=== PATIENT | female | born 1975 | race Caucasian/White ===

== ENCOUNTER 2019-06-05 16:23 | Emergency (ER) | payer OTHER, MEDICAID ==
--- NOTE | 2019-06-05 16:42 | ER Document Report ---
ED Medical Screen (RME) - General Chief Complaint: Near Syncope Stated Complaint: SYNCOPE Time Seen by Provider: 06/05/19 16:37 Primary Care Provider: RAVEN DAVID [Primary Care Provider] - Follow up as needed Mode of Arrival: Ambulatory Information source: Patient Notes: 43-year-old female with an ED after a syncopal episode this day she states she was in the kitchen when she woke up on the floor when the phone was ringing. Patient states she took a shower then went outside to smoke. She states she began to feel dizzy so she went back in the kitchen. She states that the next thing she remembers is waking up on the floor. She states she smokes a pack of cigarettes a week. She denies any alcohol or drugs to include marijuana. She states she occasionally is here visiting from [place] history includes cholesterol, essential tremors. She states she takes anxiety medicine for her tremors. Patient is alert oriented respirations regular and unlabored at this time. She did come in with her daughter. Her daughter is with her. She does have all her medications with her. She states she woke up around 3:00. I have greeted and performed a rapid initial assessment of this patient. A comprehensive ED assessment and evaluation of the patient, analysis of test results and completion of medical decision making process will be conducted by an additional ED providers. - Related Data Allergies/Adverse Reactions: No Known Allergies Allergy (Unverified 09/02/11 21:01) Past Medical History Pulmonary Medical History: Denies: Hx Tuberculosis Neurological Medical History: Denies: Hx Seizures Past Surgical History: Reports: Hx Tubal Ligation. Denies: Hx Hysterectomy, Hx Pacemaker - Immunizations Hx Diphtheria, Pertussis, Tetanus Vaccination: - unk Physical Exam - Vital signs Vitals: Temp Pulse Resp BP Pulse Ox 97.5 F 66 20 140/97 H 98 06/05/19 16:29 06/05/19 16:29 06/05/19 16:29 06/05/19 16:29 06/05/19 16:29 Course - Vital Signs Vital signs: Temp Pulse Resp BP Pulse Ox 97.5 F 66 20 140/97 H 98 06/05/19 16:29 06/05/19 16:29 06/05/19 16:29 06/05/19 16:29 06/05/19 16:29 Doctor's Discharge - Discharge Referrals: LOCALMD,NO [Primary Care Provider] - Follow up as needed
[2019-06-05 17:39] LABS: ABSOLUTE BASOPHILS # (AUTO) 0.1 10^3/uL (0.0-0.2); ABSOLUTE EOSINOPHILS # (AUTO) 0.2 10^3/uL (0.0-0.6); ABSOLUTE LYMPHOCYTES (AUTO) 3.7 10^3/uL (0.5-4.7); ABSOLUTE MONOCYTES (AUTO) 0.6 10^3/uL (0.1-1.4); ABSOLUTE NEUT (AUTO) 3.1 10^3/uL (1.7-8.2); BASOPHILS % (AUTO) 0.9 % (0-2); EOSINOPHILS % (AUTO) 3.1 % (0-6); HEMATOCRIT 44.8 % (36.0-47.0); HEMOGLOBIN 14.6 g/dL (12.0-15.5); LYMPHOCYTES % (AUTO) 48.1 % (13-45); MEAN CORPUSCULAR HGB CONC 32.7 g/dL (32.0-36.0); MEAN CORPUSCULAR VOLUME 92 fl (80-97); MONOCYTES % (AUTO) 7.3 % (3-13); PLATELET COUNT 198 10^3/uL (150-450); RED BLOOD COUNT 4.87 10^6/uL (3.72-5.28); RED CELL DISTRIBUTION WIDTH 13.5 % (11.5-14.0); SEGMENTED NEUTROPHILS % (AUTO) 40.6 % (42-78); TOTAL CELLS COUNTED % (AUTO) 100 %; WHITE BLOOD COUNT 7.7 10^3/uL (4.0-10.5)
[2019-06-05 17:50] LABS: APPEARANCE,URINE CLEAR; BILIRUBIN,URINE NEGATIVE (NEGATIVE); COLOR,URINE YELLOW; GLUCOSE, URINE NEGATIVE (NEGATIVE); KETONES,URINE NEGATIVE (NEGATIVE); LEUKOCYTE ESTERASE,URINE NEGATIVE (NEGATIVE); NITRITE,URINE NEGATIVE (NEGATIVE); PROTEIN,URINE NEGATIVE (NEGATIVE); URINE SPECIFIC GRAVITY 1.005; UROBILINOGEN,URINE NEGATIVE mg/dL (<2.0)
[2019-06-05] MEDS ORDERED: ACETAMINOPHEN 325 MG TABLET PO ONE (17:55)
[2019-06-05] MEDS ORDERED: ONDANSETRON 4 MG TAB.RAPDIS PO ONE (17:55)
[2019-06-05 18:01] LABS: ALBUMIN 4.8 g/dL (3.5-5.0); ALKALINE PHOSPHATASE 69 U/L (38-126); ANION GAP 10 (5-19); ASPARTATE AMINO TRANSFERASE 23 U/L (14-36); BILIRUBIN,DIRECT 0.1 mg/dL (0.0-0.4); BILIRUBIN,TOTAL 0.4 mg/dL (0.2-1.3); BLOOD UREA NITROGEN 9 mg/dL (7-20); CARBON DIOXIDE 27 mmol/L (22-30); CHLORIDE 107 mmol/L (98-107); CREATINE KINASE 69 U/L (30-135); TOTAL PROTEIN 7.5 g/dL (6.3-8.2)
[2019-06-05 18:03] LABS: GLUCOSE 67 mg/dL (75-110)
[2019-06-05 18:06] LABS: URINE AMPHETAMINES SCREEN NEGATIVE; URINE BARBITURATES SCREEN NEGATIVE; URINE BENZODIAZEPINES SCREEN NEGATIVE; URINE COCAINE SCREEN NEGATIVE; URINE MARIJUANA (THC) SCREEN UNCONFIRMED POSITIVE; URINE METHADONE SCREEN NEGATIVE; URINE PHENCYCLIDINE SCREEN NEGATIVE
[2019-06-05 18:13] LABS: CREATINE KINASE MB 0.33 ng/mL (<4.55); TROPONIN I < 0.012 ng/mL
--- NOTE | 2019-06-05 20:55 | ER Document Report ---
ED General - General Chief Complaint: Syncope Stated Complaint: SYNCOPE Time Seen by Provider: 06/05/19 16:37 Primary Care Provider: RAVEN DAVID [NO LOCAL MD] - Follow up as needed Mode of Arrival: Ambulatory - [facility] Notes: This is a 43-year-old female who presents showed a complaint of syncopal episode that occurred this afternoon. Patient states that she just finished taking a shower, went out to smoke when she felt dizzy. She describes a spinning sensation associated with nausea. She describes vertigo. Patient states she felt bad she went back home and had a syncopal episode. She denies any headache. She denies any chest pain or dyspnea. She denies any other compl aints at this time. She says she feels fine now. She denies any focal neurologic complaints. - Related Data Allergies/Adverse Reactions: chamomile flower Allergy (Verified 06/05/19 17:34) Penicillins Allergy (Verified 06/05/19 17:34) Past Medical History - General Information source: Patient - Social History Smoking Status: Current Every Day Smoker Frequency of alcohol use: Occasional Drug Abuse: None Family History: Reviewed & Not Pertinent Patient has suicidal ideation: No Patient has homicidal ideation: No Pulmonary Medical History: Denies: Hx Tuberculosis Neurological Medical History: Denies: Hx Seizures Past Surgical History: Reports: Hx Tubal Ligation. Denies: Hx Hysterectomy, Hx Pacemaker - Immunizations Hx Diphtheria, Pertussis, Tetanus Vaccination: - unk Review of Systems - Review of Systems Constitutional: denies: Fever, Malaise, Weakness Cardiovascular: Syncope. denies: Chest pain, Palpitations Gastrointestinal: denies: Abdominal pain, Diarrhea, Nausea Genitourinary: denies: Dysuria, Discharge Neurological/Psychological: Lost consciousness. denies: Weakness, Loss of power, Headaches, Numbness -: Yes All other systems reviewed and negative Physical Exam - Vital signs Vitals: Temp Pulse Resp BP Pulse Ox 97.5 F 66 20 140/97 H 98 06/05/19 16:29 06/05/19 16:29 06/05/19 16:29 06/05/19 16:29 06/05/19 16:29 - General General appearance: Appears well, Alert - Respiratory Respiratory status: No respiratory distress Chest status: Nontender Breath sounds: Normal Chest palpation: Normal - Cardiovascular Rhythm: Regular Heart sounds: Normal auscultation Murmur: No - Abdominal Inspection: Normal Distension: No distension Bowel sounds: Normal Tenderness: Nontender Organomegaly: No organomegaly - Back Back: Normal, Nontender - Neurological Neuro grossly intact: Yes Cognition: Normal Orientation: AAOx4 [place] Coma Scale Eye Opening: Spontaneous [place] Coma Scale Verbal: Oriented [place] Coma Scale Motor: Obeys Commands [place] Coma Scale Total: 15 Speech: Normal Motor strength normal: LUE, RUE, LLE, RLE Sensory: Normal - Psychological Associated symptoms: Normal affect, Normal mood - Skin Skin Temperature: Warm Skin Moisture: Dry Skin Color: Normal Course - Re-evaluation Re-evalutation: 06/05/19 20:57 Clinical picture is suggestive of vasovagal syncope versus peripheral vertigo. Differential diagnosis includes arrhythmia. There is no clinical suspicion for acute coronary syndrome or CVA with nonfocal neurologic exam. EKG shows normal sinus rhythm at 54 bpm. Normal axis. Normal intervals. No acute injury pattern. 06/05/19 21:54 Patient reevaluated. Patient is doing well. Labs and imaging reviewed and discussed. No further dizzy spells. I will put her on meclizine in case she gets any further dizzy spells. She is stable for discharge. - Vital Signs Vital signs: Temp Pulse Resp BP Pulse Ox 97.4 F 56 L 20 116/83 98 06/05/19 20:03 06/05/19 20:03 06/05/19 20:03 06/05/19 20:03 06/05/19 20:03 - Laboratory Result Diagrams: 06/05/19 17:01 06/05/19 17:01 Laboratory results interpreted by me: 06/05/19 06/05/19 17:01 17:01 Lymph % (Auto) 48.1 H Seg Neutrophils % 40.6 L Glucose 67 L Discharge - Discharge Clinical Impression: Vasovagal episode, Dizziness Syncope Qualifiers: Syncope type: vasovagal syncope Qualified Code(s): R55 - Syncope and collapse Condition: Good Disposition: HOME, SELF-CARE Instructions: Vasovagal Symptoms ([facility]), Syncopal Episode ([facility]), Vertigo ([facility]) Additional Instructions: Return if worse or concerns. Prescriptions: Meclizine HCl [Antivert 25 mg Tablet] 25 mg PO TID PRN #21 tablet PRN Reason: Referrals: LOCALMD,NO [NO LOCAL MD] - Follow up tomorrow
--- NOTE | 2019-06-05 21:03 | RADIOLOGY REPORT (SQ) ---
EXAM DESCRIPTION: CT HEAD WITHOUT IV CONTRAST COMPLETED DATE/TME: 06/05/2019 20:09 CLINICAL HISTORY: syncope COMPARISON: None Available. TECHNIQUE: Contiguous axial images of the brain were obtained without the administration of intravenous contrast. This exam was performed according to our departmental dose-optimization program, which includes automated exposure control, adjustment of the mA and/or kV according to patient size and/or use of iterative reconstruction technique. FINDINGS: There is no acute intracranial hemorrhage or mass effect. Ventricular system is within normal limits. There is adequate lewis-white matter differentiation. There is no skull fracture. The visualized paranasal sinuses and mastoid air cells are within normal limits. IMPRESSION: No acute intracranial abnormalities.
--- NOTE | 2019-06-05 21:48 | EKG REPORT ---
SEVERITY:- BORDERLINE ECG - SINUS RHYTHM SHORT OH INTERVAL, ACCELERATED AV CONDUCTION CONSIDER ANTERIOR INFARCT : Confirmed by: Loren Landin MD 05-Jun-2019 21:47:23
[2019-06-05 22:25] VITALS: BP 136/96
== END 2019-06-05 22:22 | disposition home or self-care (01) ==
LOC: ER 16:23
DX: R55 Syncope and collapse (principal); R42 Dizziness and giddiness; R11.0 Nausea; F17.200 Nicotine dependence, unspecified, uncomplicated; Z88.0 Allergy status to penicillin; Z98.51 Tubal ligation status
CPT/HCPCS: 93005; 36415; 82553; 82550; 84703; 85025; 80053; 81001; 84484; 80307; 70450; 93010; S0119